=== PATIENT | female | born 1985 | race American Indian/Alaskan Native ===

== ENCOUNTER 2016-06-21 22:13 | Emergency (ER) | payer MEDICAID ==
[2016-06-21 22:38] VITALS: BP 133/77
--- NOTE | 2016-06-30 13:31 | ED Elopement Review ---
ED Pt Elopement review - Call Back decision Pt Call Back Decision: No action required
== END 2016-06-22 05:58 | disposition left against medical advice (07) ==
LOC: ED 22:13
DX: R51 Headache (principal); M54.9 Dorsalgia, unspecified; Z53.21 Procedure and treatment not carried out due to patient leaving prior to being seen by health care provider

== ENCOUNTER 2016-10-13 16:45 | Emergency (ER) | payer MEDICAID ==
[2016-10-13 18:49] LABS: Basophils % (Auto) 0.3 % (0.0-1.8); Eosinophils % (Auto) 0.4 % (0.0-4.3); Hematocrit 32.9 % (30.3-42.9); Hemoglobin 10.6 gm/dl (10.1-14.3); Mean Corpuscular HGB Conc 32 % (30-34); Mean Corpuscular Hemoglobin 26 pg (28-32); Mean Corpuscular Volume 81 fl (79-97); Platelet Count 419 K/mm3 (140-440); Red Blood Count 4.06 M/mm3 (3.65-5.03); Red Cell Distribution Width 19.4 % (13.2-15.2); White Blood Count 5.9 K/mm3 (4.5-11.0)
[2016-10-13 18:49] LABS: Urine Drugs of Abuse Note Disclamer
[2016-10-13 19:04] LABS: Bilirubin,Urine NEG (Negative)
[2016-10-13 19:05] LABS: Blood,Urine MOD (Negative); Ketones,Urine NEG (Negative); Leukocyte Esterase,Urine TR (Negative); Mucus,Urine FEW /HPF; Nitrite,Urine NEG (Negative); Urobilinogen,Urine < 2.0 mg/dL (<2.0)
[2016-10-13 19:10] LABS: Alanine Aminotransferase 9 units/L (7-56); Albumin 4.1 g/dL (3.9-5); Albumin/Globulin Ratio 1.6 %; Alkaline Phosphatase 89 units/L (35-129); Anion Gap 19 mmol/L; BUN/Creatinine Ratio 7.14; Blood Urea Nitrogen 5 mg/dL (7-17); Calcium 8.8 mg/dL (8.4-10.2); Carbon Dioxide 27 mmol/L (22-30); Chloride 100.6 mmol/L (98-107); Glucose 78 mg/dL (65-100); Potassium 3.3 mmol/L (3.6-5.0); Sodium 143 mmol/L (137-145); Total Protein 6.6 g/dL (6.3-8.2)
--- NOTE | 2016-10-13 19:38 | Emergency Department Report ---
ED General Adult HPI - General Chief complaint: Altered Mental Status Stated complaint: SEIZURE/OVERDOSE Time Seen by Provider: 10/13/16 19:25 Source: patient, family, EMS, RN notes reviewed, old records reviewed Mode of arrival: Stretcher Limitations: Other (patient is a poor historian) - History of Present Illness Initial comments: This is a 31-year-old female. I have evaluated her in the past. Patient has a past medical history of multiple sclerosis, narcotic dependence and abuse, fibromyalgia, gastric bypass, reports a history of seizure disorder. The patient is brought to the hospital by EMS for an episode of altered mental status and "then had a seizure that lasted for approximately 2 minutes." Patient was then stated to not be able to be awoken. Family indicated to EMS the patient had a tooth extraction yesterday, that she was given a prescription for oxycodone for the pain. EMS indicates that the prescription was not from yesterday, but rather in 7 days old, the bottle indicated 120 tablets and it is empty today. Family indicates the patient has been taking her narcotic medicine today. Patient was given 2 mg of Narcan in the field, with improvement in her mental status. In the ER, the patient is requesting pain medicine for her dental pain. She denies headache, neck pain, chest pain, abdominal pain, shortness of breath, irritated and obstructive urinary symptoms. She reports that she did not attempt to overdose, she reports that she is not having hallucinations, she reports that she is not homicidal or suicidal. She indicates "I have too much to live for because I have 3 children." The patient indicates that she is not selling or distributing her narcotic prescriptions, and she also indicates that the pill bottles empty and because she put the pills and other empty bottles. -: Sudden Severity scale (0 -10): 0 Consistency: now resolved Improves with: none Worsens with: none Associated Symptoms: confusion, loss of appetite, malaise, weakness - Related Data Home Medications Medication Instructions Recorded Confirmed Last Taken Amitriptyline [Elavil] 100 mg PO QHS 02/02/15 10/23/15 02/01/15 FLUoxetine HCL [FLUoxetine] 40 mg PO QDAY 02/02/15 10/23/15 10/23/15 Gabapentin [Neurontin] 100 mg PO Q8HR 02/02/15 10/23/15 02/01/15 Memantine HCl [Namenda] 5 mg PO QDAY 02/02/15 10/23/15 10/23/15 Quetiapine Fumarate [QUEtiapine 300 mg PO QHS 02/02/15 10/23/15 02/01/15 Fumarate] Previous Rx's Medication Instructions Recorded Last Taken Type Cyclobenzaprine [Flexeril 10 MG 10 mg PO TID PRN #14 tablet 10/23/15 Unknown Rx TAB] HYDROcodone/APAP 5-325 [[place] 1 - 2 each PO Q6HR PRN #14 tablet 10/23/15 Unknown Rx 5-325 mg TAB] Ibuprofen [Motrin 800 MG tab] 800 mg PO Q8HR PRN #20 tablet 10/23/15 Unknown Rx Cyclobenzaprine [Flexeril] 10 mg PO TID PRN #20 tablet 12/28/15 Unknown Rx HYDROcodone/APAP 5-325 [[place] 1 each PO Q6HR PRN #15 tablet 12/28/15 Unknown Rx 5/325] Prednisone [predniSONE 10 mg 10 mg PO .TAPER #1 tab.ds.pk 12/28/15 Unknown Rx (6-Day Pack, 21 Tabs)] oxyCODONE /ACETAMINOPHEN [Percocet 1 tab PO Q6HR PRN #14 tablet 01/08/16 Unknown Rx 5/325] Nitrofurantoin Wilkinson/M-Cryst 100 mg PO Q12HR #13 capsule 01/15/16 Unknown Rx [Macrobid CAP] oxyCODONE /ACETAMINOPHEN [Percocet 1 tab PO Q6HR PRN #20 tablet 02/05/16 Unknown Rx 5/325] Naloxone HCl [Narcan] 4 mg NS Q1HR PRN #1 spray 10/13/16 Unknown Rx levETIRAcetam [Keppra TAB] 500 mg PO BID #60 tablet 10/13/16 Unknown Rx Allergies Allergy/AdvReac Type Severity Reaction Status Date / Time prednisone Allergy Nausea Verified 12/24/15 16:32 tramadol Allergy Seizure Verified 12/24/15 16:32 acetaminophen AdvReac Itching Verified 12/24/15 16:32 [From Tylenol-Codeine #3] codeine phosphate AdvReac Itching Verified 12/24/15 16:32 [From Tylenol-Codeine #3] ED Review of Systems ROS: Stated complaint: SEIZURE/OVERDOSE Other details as noted in HPI Constitutional: malaise. denies: fever Eyes: denies: eye discharge ENT: dental pain Respiratory: denies: cough Cardiovascular: denies: chest pain Gastrointestinal: denies: vomiting Genitourinary: denies: urgency Musculoskeletal: arthralgia, myalgia Skin: denies: lesions Neurological: confusion Psychiatric: denies: homicidal thoughts, suicidal thoughts ED Past Medical Hx - Past Medical History Hx Hypertension: No Hx Heart Attack/AMI: No Hx Congestive Heart Failure: No Hx Diabetes: No Hx Deep Vein Thrombosis: No Hx GERD: Yes Hx Arthritis: Yes Hx Headaches / Migraines: Yes Hx Seizures: Yes Hx Psychiatric Treatment: Yes (anxiety,depression) Hx Asthma: No Hx COPD: No Additional medical history: Multiple sclerosis. herniated disc. fibromyalgia. anemia - Surgical History Hx Coronary Stent: No Hx Pacemaker: No Hx Internal Defibrillator: No Hx Cholecystectomy: Yes Additional Surgical History: Gastric bypass. C section X 3 - Social History Smoking Status: Never Smoker Substance Use Type: None - Medications Home Medications: Home Medications Medication Instructions Recorded Confirmed Last Taken Type Amitriptyline [Elavil] 100 mg PO QHS 02/02/15 10/23/15 02/01/15 History FLUoxetine HCL [FLUoxetine] 40 mg PO QDAY 02/02/15 10/23/15 10/23/15 History Gabapentin [Neurontin] 100 mg PO Q8HR 02/02/15 10/23/15 02/01/15 History Memantine HCl [Namenda] 5 mg PO QDAY 02/02/15 10/23/15 10/23/15 History Quetiapine Fumarate [QUEtiapine 300 mg PO QHS 02/02/15 10/23/15 02/01/15 History Fumarate] Cyclobenzaprine [Flexeril 10 MG 10 mg PO TID PRN #14 tablet 10/23/15 Unknown Rx TAB] HYDROcodone/APAP 5-325 [[place] 1 - 2 each PO Q6HR PRN #14 tablet 10/23/15 Unknown Rx 5-325 mg TAB] Ibuprofen [Motrin 800 MG tab] 800 mg PO Q8HR PRN #20 tablet 10/23/15 Unknown Rx Cyclobenzaprine [Flexeril] 10 mg PO TID PRN #20 tablet 12/28/15 Unknown Rx HYDROcodone/APAP 5-325 [[place] 1 each PO Q6HR PRN #15 tablet 12/28/15 Unknown Rx 5/325] Prednisone [predniSONE 10 mg 10 mg PO .TAPER #1 tab.ds.pk 12/28/15 Unknown Rx (6-Day Pack, 21 Tabs)] oxyCODONE /ACETAMINOPHEN [Percocet 1 tab PO Q6HR PRN #14 tablet 01/08/16 Unknown Rx 5/325] Nitrofurantoin Wilkinson/M-Cryst 100 mg PO Q12HR #13 capsule 01/15/16 Unknown Rx [Macrobid CAP] oxyCODONE /ACETAMINOPHEN [Percocet 1 tab PO Q6HR PRN #20 tablet 02/05/16 Unknown Rx 5/325] Naloxone HCl [Narcan] 4 mg NS Q1HR PRN #1 spray 10/13/16 Unknown Rx levETIRAcetam [Keppra TAB] 500 mg PO BID #60 tablet 10/13/16 Unknown Rx ED Physical Exam - General Limitations: No Limitations General appearance: alert, in no apparent distress - Head Head exam: Present: atraumatic, normocephalic - Eye Eye exam: Present: normal appearance, PERRL, EOMI, other (visual acuity intact to finger counting, color perception, reading at a close distance). Absent: nystagmus - ENT ENT exam: Present: mucous membranes moist, normal external ear exam, other ( patient has multiple dental caries. Dental extraction sites are noted on the right posterior mandible, with no active bleeding.) - Neck Neck exam: Present: normal inspection, full ROM. Absent: tenderness, meningismus - Respiratory Respiratory exam: Present: normal lung sounds bilaterally. Absent: respiratory distress, wheezes, rales, rhonchi, stridor, chest wall tenderness, accessory muscle use, decreased breath sounds, prolonged expiratory - Cardiovascular Cardiovascular Exam: Present: regular rate, normal rhythm, normal heart sounds. Absent: bradycardia, tachycardia, irregular rhythm, systolic murmur, diastolic murmur, rubs, gallop - GI/Abdominal GI/Abdominal exam: Present: soft, normal bowel sounds. Absent: distended, tenderness, guarding, rebound, rigid, pulsatile mass - Extremities Exam Extremities exam: Present: normal inspection, full ROM, normal capillary refill. Absent: pedal edema, joint swelling, calf tenderness - Back Exam Back exam: Present: normal inspection, full ROM. Absent: tenderness, CVA tenderness (R), CVA tenderness (L), muscle spasm, paraspinal tenderness, vertebral tenderness - Neurological Exam Neurological exam: Present: alert, oriented X3, other (Extraocular movements intact. Tongue midline. No facial droop. Facial sensation intact to light touch in the V1, V2, V3 distribution bilaterally. 5 and 5 strength in 4 extremities.. Sensation is intact to light touch in 4 extremities.). Absent: motor sensory deficit - Psychiatric Psychiatric exam: Present: normal affect, normal mood. Absent: homicidal ideation, suicidal ideation - Skin Skin exam: Present: warm, dry, intact, normal color. Absent: rash ED Course Vital Signs 10/13/16 10/13/16 10/13/16 17:34 18:41 21:05 Temperature 98.4 F Pulse Rate 103 H 100 H Respiratory 16 18 Rate Blood Pressure 107/68 Blood Pressure 105/60 [Right] O2 Sat by Pulse 100 99 Oximetry ED Medical Decision Making - Lab Data Result diagrams: 10/13/16 18:29 10/13/16 18:29 Vital Signs 10/13/16 10/13/16 10/13/16 17:34 18:41 21:05 Temperature 98.4 F Pulse Rate 103 H 100 H Respiratory 16 18 Rate Blood Pressure 107/68 Blood Pressure 105/60 [Right] O2 Sat by Pulse 100 99 Oximetry Lab Results 10/13/16 10/13/16 10/13/16 Range/Units 18:29 18:29 18:29 WBC 5.9 (4.5-11.0) K/mm3 RBC 4.06 (3.65-5.03) M/mm3 Hgb 10.6 (10.1-14.3) gm/dl Hct 32.9 (30.3-42.9) % MCV 81 (79-97) fl MCH 26 L (28-32) pg MCHC 32 (30-34) % RDW 19.4 H (13.2-15.2) % Plt Count 419 (140-440) K/mm3 Lymph % (Auto) 15.8 (13.4-35.0) % Wilkinson % (Auto) 8.8 H (0.0-7.3) % Eos % (Auto) 0.4 (0.0-4.3) % Baso % (Auto) 0.3 (0.0-1.8) % Lymph # 0.9 L (1.2-5.4) K/mm3 Wilkinson # 0.5 (0.0-0.8) K/mm3 Eos # 0.0 (0.0-0.4) K/mm3 Baso # 0.0 (0.0-0.1) K/mm3 Seg Neutrophils % 74.7 H (40.0-70.0) % Seg Neutrophils # 4.4 (1.8-7.7) K/mm3 Sodium 143 (137-145) mmol/L Potassium 3.3 L (3.6-5.0) mmol/L Chloride 100.6 (98-107) mmol/L Carbon Dioxide 27 (22-30) mmol/L Anion Gap 19 mmol/L BUN 5 L (7-17) mg/dL Creatinine 0.7 (0.7-1.2) mg/dL Estimated GFR > 60 ml/min BUN/Creatinine Ratio 7.14 % Glucose 78 (65-100) mg/dL POC Glucose (70-105) Calcium 8.8 (8.4-10.2) mg/dL Magnesium 2.00 (1.7-2.3) mg/dL Total Bilirubin 0.30 (0.1-1.2) mg/dL AST 12 (5-40) units/L ALT 9 (7-56) units/L Alkaline Phosphatase 89 (35-129) units/L Total Creatine Kinase (30-135) units/L Total Protein 6.6 (6.3-8.2) g/dL Albumin 4.1 (3.9-5) g/dL Albumin/Globulin Ratio 1.6 % TSH 0.281 (0.270-4.200) mlU/mL Urine Color (Yellow) Urine Turbidity (Clear) Urine pH (5.0-7.0) Ur Specific [place] (1.003-1.030) Urine Protein (Negative) mg/dL Urine Glucose (UA) (Negative) mg/dL Urine Ketones (Negative) mg/dL Urine Blood (Negative) Urine Nitrite (Negative) Urine Bilirubin (Negative) Urine Urobilinogen (<2.0) mg/dL Ur Leukocyte Esterase (Negative) Urine WBC (Auto) (0.0-6.0) /HPF Urine RBC (Auto) (0.0-6.0) /HPF U Epithel Cells (Auto) (0-13.0) /HPF Urine Mucus /HPF Salicylates (2.8-20.0) mg/dL Urine Opiates Screen Urine Methadone Screen Acetaminophen (10.0-30.0) ug/mL Ur Barbiturates Screen Ur Phencyclidine Scrn Ur Amphetamines Screen U Benzodiazepines Scrn Urine Cocaine Screen U Marijuana (THC) Screen Drugs of Abuse Note Plasma/Serum Alcohol (0-0.07) gm% 10/13/16 10/13/16 10/13/16 Range/Units 18:29 18:29 18:29 WBC (4.5-11.0) K/mm3 RBC (3.65-5.03) M/mm3 Hgb (10.1-14.3) gm/dl Hct (30.3-42.9) % MCV (79-97) fl MCH (28-32) pg MCHC (30-34) % RDW (13.2-15.2) % Plt Count (140-440) K/mm3 Lymph % (Auto) (13.4-35.0) % Wilkinson % (Auto) (0.0-7.3) % Eos % (Auto) (0.0-4.3) % Baso % (Auto) (0.0-1.8) % Lymph # (1.2-5.4) K/mm3 Wilkinson # (0.0-0.8) K/mm3 Eos # (0.0-0.4) K/mm3 Baso # (0.0-0.1) K/mm3 Seg Neutrophils % (40.0-70.0) % Seg Neutrophils # (1.8-7.7) K/mm3 Sodium (137-145) mmol/L Potassium (3.6-5.0) mmol/L Chloride (98-107) mmol/L Carbon Dioxide (22-30) mmol/L Anion Gap mmol/L BUN (7-17) mg/dL Creatinine (0.7-1.2) mg/dL Estimated GFR ml/min BUN/Creatinine Ratio % Glucose (65-100) mg/dL POC Glucose (70-105) Calcium (8.4-10.2) mg/dL Magnesium (1.7-2.3) mg/dL Total Bilirubin (0.1-1.2) mg/dL AST (5-40) units/L ALT (7-56) units/L Alkaline Phosphatase (35-129) units/L Total Creatine Kinase (30-135) units/L Total Protein (6.3-8.2) g/dL Albumin (3.9-5) g/dL Albumin/Globulin Ratio % TSH (0.270-4.200) mlU/mL Urine Color (Yellow) Urine Turbidity (Clear) Urine pH (5.0-7.0) Ur Specific [place] (1.003-1.030) Urine Protein (Negative) mg/dL Urine Glucose (UA) (Negative) mg/dL Urine Ketones (Negative) mg/dL Urine Blood (Negative) Urine Nitrite (Negative) Urine Bilirubin (Negative) Urine Urobilinogen (<2.0) mg/dL Ur Leukocyte Esterase (Negative) Urine WBC (Auto) (0.0-6.0) /HPF Urine RBC (Auto) (0.0-6.0) /HPF U Epithel Cells (Auto) (0-13.0) /HPF Urine Mucus /HPF Salicylates < 0.3 L (2.8-20.0) mg/dL Urine Opiates Screen Urine Methadone Screen Acetaminophen < 15.0 (10.0-30.0) ug/mL Ur Barbiturates Screen Ur Phencyclidine Scrn Ur Amphetamines Screen U Benzodiazepines Scrn Urine Cocaine Screen U Marijuana (THC) Screen Drugs of Abuse Note Plasma/Serum Alcohol < 0.01 (0-0.07) gm% 10/13/16 10/13/16 10/13/16 Range/Units 18:29 18:31 18:31 WBC (4.5-11.0) K/mm3 RBC (3.65-5.03) M/mm3 Hgb (10.1-14.3) gm/dl Hct (30.3-42.9) % MCV (79-97) fl MCH (28-32) pg MCHC (30-34) % RDW (13.2-15.2) % Plt Count (140-440) K/mm3 Lymph % (Auto) (13.4-35.0) % Wilkinson % (Auto) (0.0-7.3) % Eos % (Auto) (0.0-4.3) % Baso % (Auto) (0.0-1.8) % Lymph # (1.2-5.4) K/mm3 Wilkinson # (0.0-0.8) K/mm3 Eos # (0.0-0.4) K/mm3 Baso # (0.0-0.1) K/mm3 Seg Neutrophils % (40.0-70.0) % Seg Neutrophils # (1.8-7.7) K/mm3 Sodium (137-145) mmol/L Potassium (3.6-5.0) mmol/L Chloride (98-107) mmol/L Carbon Dioxide (22-30) mmol/L Anion Gap mmol/L BUN (7-17) mg/dL Creatinine (0.7-1.2) mg/dL Estimated GFR ml/min BUN/Creatinine Ratio % Glucose (65-100) mg/dL POC Glucose (70-105) Calcium (8.4-10.2) mg/dL Magnesium (1.7-2.3) mg/dL Total Bilirubin (0.1-1.2) mg/dL AST (5-40) units/L ALT (7-56) units/L Alkaline Phosphatase (35-129) units/L Total Creatine Kinase 111 (30-135) units/L Total Protein (6.3-8.2) g/dL Albumin (3.9-5) g/dL Albumin/Globulin Ratio % TSH (0.270-4.200) mlU/mL Urine Color Yellow (Yellow) Urine Turbidity Slightly-cloudy (Clear) Urine pH 5.0 (5.0-7.0) Ur Specific [place] 1.015 (1.003-1.030) Urine Protein 30 mg/dl (Negative) mg/dL Urine Glucose (UA) Neg (Negative) mg/dL Urine Ketones Neg (Negative) mg/dL Urine Blood Mod (Negative) Urine Nitrite Neg (Negative) Urine Bilirubin Neg (Negative) Urine Urobilinogen < 2.0 (<2.0) mg/dL Ur Leukocyte Esterase Tr (Negative) Urine WBC (Auto) 5.0 (0.0-6.0) /HPF Urine RBC (Auto) 3.0 (0.0-6.0) /HPF U Epithel Cells (Auto) 6.0 (0-13.0) /HPF Urine Mucus Few /HPF Salicylates (2.8-20.0) mg/dL Urine Opiates Screen Presumptive negative Urine Methadone Screen Presumptive negative Acetaminophen (10.0-30.0) ug/mL Ur Barbiturates Screen Presumptive negative Ur Phencyclidine Scrn Presumptive negative Ur Amphetamines Screen Presumptive negative U Benzodiazepines Scrn Presumptive negative Urine Cocaine Screen Presumptive negative U Marijuana (THC) Screen Presumptive negative Drugs of Abuse Note Disclamer Plasma/Serum Alcohol (0-0.07) gm% // Range/Units 18:33 WBC (4.5-11.0) K/mm3 RBC (3.65-5.03) M/mm3 Hgb (10.1-14.3) gm/dl Hct (30.3-42.9) % MCV (79-97) fl MCH (28-32) pg MCHC (30-34) % RDW (13.2-15.2) % Plt Count (140-440) K/mm3 Lymph % (Auto) (13.4-35.0) % Wilkinson % (Auto) (0.0-7.3) % Eos % (Auto) (0.0-4.3) % Baso % (Auto) (0.0-1.8) % Lymph # (1.2-5.4) K/mm3 Wilkinson # (0.0-0.8) K/mm3 Eos # (0.0-0.4) K/mm3 Baso # (0.0-0.1) K/mm3 Seg Neutrophils % (40.0-70.0) % Seg Neutrophils # (1.8-7.7) K/mm3 Sodium (137-145) mmol/L Potassium (3.6-5.0) mmol/L Chloride (98-107) mmol/L Carbon Dioxide (22-30) mmol/L Anion Gap mmol/L BUN (7-17) mg/dL Creatinine (0.7-1.2) mg/dL Estimated GFR ml/min BUN/Creatinine Ratio % Glucose (65-100) mg/dL POC Glucose 84 (70-105) Calcium (8.4-10.2) mg/dL Magnesium (1.7-2.3) mg/dL Total Bilirubin (0.1-1.2) mg/dL AST (5-40) units/L ALT (7-56) units/L Alkaline Phosphatase (35-129) units/L Total Creatine Kinase (30-135) units/L Total Protein (6.3-8.2) g/dL Albumin (3.9-5) g/dL Albumin/Globulin Ratio % TSH (0.270-4.200) mlU/mL Urine Color (Yellow) Urine Turbidity (Clear) Urine pH (5.0-7.0) Ur Specific [place] (1.003-1.030) Urine Protein (Negative) mg/dL Urine Glucose (UA) (Negative) mg/dL Urine Ketones (Negative) mg/dL Urine Blood (Negative) Urine Nitrite (Negative) Urine Bilirubin (Negative) Urine Urobilinogen (<2.0) mg/dL Ur Leukocyte Esterase (Negative) Urine WBC (Auto) (0.0-6.0) /HPF Urine RBC (Auto) (0.0-6.0) /HPF U Epithel Cells (Auto) (0-13.0) /HPF Urine Mucus /HPF Salicylates (2.8-20.0) mg/dL Urine Opiates Screen Urine Methadone Screen Acetaminophen (10.0-30.0) ug/mL Ur Barbiturates Screen Ur Phencyclidine Scrn Ur Amphetamines Screen U Benzodiazepines Scrn Urine Cocaine Screen U Marijuana (THC) Screen Drugs of Abuse Note Plasma/Serum Alcohol (0-0.07) gm% - EKG Data -: EKG Interpreted by Ct EKG shows normal: sinus rhythm, axis, ST-T waves - EKG Data 10/13/16 21:41 Normal sinus, 95 bpm, QTC 490 ms, motion artifact, abnormal EKG, not morphologically consistent with stemi - Radiology Data Radiology results: report reviewed, image reviewed Noncontrast CT scan of the brain is negative for acute disease, chronic findings noted. - Medical Decision Making Differential diagnosis: Breakthrough seizure, pseudoseizure, narcotic overdose, narcotic dependence, drug-seeking behavior Assessment and plan: 31-year-old female with reported history of altered mental status and nonspecific convulsive activity, improved with Narcan. Patient adamantly denies suicidal ideation, she is clinically sober at this time, she has a GCS of 15, with an NIH score of 0. Laboratory studies unremarkable. Serum toxicology study negative. Urinalysis is not consistent with urinary tract infection. Noncontrast CT scan of the brain is negative for acute traumatic disease. Patient is clinically sober at this time. The cervical spine is cleared through nexus and [place] c spine rule I did offer the patient counseling for narcotic dependence with the crisis team which she declined. Patient has been observed in the ER for over 5 hours, she will be discharged with her Aed medication, and she will also be discharged with a Narcan prescription. Critical care attestation.: If time is entered above; I have spent that time in minutes in the direct care of this critically ill patient, excluding procedure time. ED Disposition Clinical Impression: History of convulsions Disposition: DC-01 TO HOME OR SELFCARE Is pt being admited?: No Does the pt Need Aspirin: No Condition: Stable Instructions: Narcotic Abuse (ED) Additional Instructions: Follow up with a neurology specialist within the next 7-10 days. Do not tremor car or operate motor vehicles or make important decisions. Avoid consumption of alcohol. Follow-up with an outpatient mental health professional for suspected narcotic abuse. Complications of narcotic abuse including , disability, paralysis, loss of quality of life. Return to the ER right away with fevers or chills, chest pain or shortness of breath, recurrent seizure, intractable nausea or vomiting, inability to tolerate liquid feeds. Prescriptions: levETIRAcetam [Keppra TAB] 500 mg PO BID #60 tablet Naloxone HCl [Narcan] 4 mg NS Q1HR PRN #1 spray PRN Reason: Agitation Referrals: PRIMARY CARE, [Primary Care Provider] - 3-5 Days PIEDAD MIRANDA MD [Staff Physician] - 3-5 Days TAMMY MARIE MD [Staff Physician] - 3-5 Days ZACKARY SPENCER MD [Staff Physician] - 3-5 Days
--- NOTE | 2016-10-13 19:53 | Cat Scan Report ---
FINAL REPORT EXAM: CT HEAD/BRAIN WO CON HISTORY: AMS TECHNIQUE: Noncontrast CT axial images of the brain. PRIORS: 01 September 2015. FINDINGS: No parenchymal mass, mass effect, hemorrhage, midline shift or hydrocephalus. No evidence of acute cortical infarct. No abnormal, extra-axial fluid or air collection. Mild, patchy low density in the periventricular and subcortical white matter is nonspecific, but may relate to chronic small vessel ischemic change versus demyelinating disease, about the same. Osseous calvarium grossly intact. IMPRESSION: 1. No acute intracranial findings. 2. Findings which may represent chronic ischemic changes versus sequelae of demyelinating disease.
[2016-10-13 21:06] VITALS: BP 105/60
[2016-10-13] MEDS ORDERED: LIDOCAINE VISCOUS 2% PO ONE (21:36)
[2016-10-13] MEDS ORDERED: KEPPRA PO ONE (21:37)
[2016-10-13] MEDS ORDERED: K-DUR PO ONE (21:41)
== END 2016-10-13 22:33 | disposition home or self-care (01) ==
LOC: EEVIPCON 16:45 → ED 16:45
DX: R41.82 Altered mental status, unspecified (principal); G43.909 Migraine, unspecified, not intractable, without status migrainosus; K21.9 Gastro-esophageal reflux disease without esophagitis; M19.90 Unspecified osteoarthritis, unspecified site; Z88.6 Allergy status to analgesic agent; Z88.8 Allergy status to other drugs, medicaments and biological substances
CPT/HCPCS: 36415; 70450; 80053; 80307; 81001; 82550; 82962; 83735; 84443; 85025; 93005; 93010; 99285; G0480; 80320

== ENCOUNTER 2017-05-17 14:48 | Emergency (ER) | payer MEDICAID ==
[2017-05-17] MEDS ORDERED: NACL 0.9% 1000 ML 1,000 ML ONE (15:07)
[2017-05-17 16:14] LABS: Basophils % (Auto) 0.4 % (0.0-1.8); Eosinophils % (Auto) 0.4 % (0.0-4.3); Hematocrit 34.3 % (30.3-42.9); Hemoglobin 10.6 gm/dl (10.1-14.3); Lymphocytes # (Auto) 1.4 K/mm3 (1.2-5.4); Lymphocytes % (Auto) 24.4 % (13.4-35.0); Mean Corpuscular HGB Conc 31 % (30-34); Mean Corpuscular Volume 82 fl (79-97); Monocytes # (Auto) 0.5 K/mm3 (0.0-0.8); Monocytes % (Auto) 7.8 % (0.0-7.3); Platelet Count 370 K/mm3 (140-440)
[2017-05-17 16:23] LABS: Mean Corpuscular Hemoglobin 25 pg (28-32)
[2017-05-17 16:34] LABS: Alanine Aminotransferase 18 units/L (7-56); Albumin 4.7 g/dL (3.9-5); BUN/Creatinine Ratio 26; Blood Urea Nitrogen 13 mg/dL (7-17); Calcium 8.8 mg/dL (8.4-10.2); Hemolysis Index 11
[2017-05-17 17:38] LABS: Bilirubin,Urine NEG (Negative); Blood,Urine NEG (Negative); Color,Urine Yellow (Yellow); Mucus,Urine FEW /HPF; Protein,Urine <15 mg/dL mg/dL (Negative)
[2017-05-17 17:49] LABS: Amphetamine Screen,Urine PRESUMPTIVE NEGATIVE; Benzodiazepines Screen,Urine PRESUMPTIVE NEGATIVE; Cannabinoid Screen,Urine PRESUMPTIVE NEGATIVE; Cocaine Screen,Urine PRESUMPTIVE NEGATIVE; Methadone Screen,Urine PRESUMPTIVE NEGATIVE; Opiate Screen,Urine PRESUMPTIVE NEGATIVE
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
[2017-05-17 19:14] VITALS: BP 103/50
== END 2017-05-17 20:04 | disposition home or self-care (01) ==
LOC: ED 14:48
DX: G40.909 Epilepsy, unspecified, not intractable, without status epilepticus (principal); G35 Multiple sclerosis; N76.0 Acute vaginitis; K21.9 Gastro-esophageal reflux disease without esophagitis; G43.909 Migraine, unspecified, not intractable, without status migrainosus; F41.9 Anxiety disorder, unspecified; F32.9 Major depressive disorder, single episode, unspecified; M79.7 Fibromyalgia; Z86.2 Personal history of diseases of the blood and blood-forming organs and certain disorders involving the immune mechanism; Z98.84 Bariatric surgery status; Z90.49 Acquired absence of other specified parts of digestive tract
CPT/HCPCS: 36415; 80053; 80307; 81001; 83735; 84443; 84703; 85025; 87210; 87591; 93005; 93010; 99284; G0480; J7030; 80320